=== PATIENT | male | born 1940 | race Caucasian/White ===

== ENCOUNTER → 2016-08-07 | Outpatient (CLI) | payer OTHER ==
[~2016-08-07] MED LIST: ACET-1256 PO; AMR2 PO; ASPI-428 PO; GLC850 PO; GLIM2TAB2 PO; MAGN400T6 PO; METO100T7 PO; MULT-506 PO; PRLSR20 PO; RIVA1TAB4 PO; TRAM-10 PO; TRMO180 TOP; ZCR40 PO; ZNTT/150 PO
--- NOTE | 2016-08-07 14:02 | DIAGNOSTIC IMAGING REPORT ---
SI JOINTS 3 OR MORE VIEWS CLINICAL HISTORY: M54.32 Sciatica of left [id number] pain COMPARISON STUDY: None FINDINGS: Sacroiliac joints are patent. No evidence of bony ankylosis. Postoperative changes in the low soft tissue pelvis. Degenerative changes low lumbar spine. Sacral foramina are symmetric. IMPRESSION: Mild degenerative change of the sacroiliac joints. No evidence for bony ankylosis. Electronically signed by: Taurus Castañeda M.D. 08/07/2016 2:01 PM Dictated Date/Time: 08/07/2016 2:00 PM
--- NOTE | 2016-08-07 14:04 | DIAGNOSTIC IMAGING REPORT ---
LEFT HIP UNILATERAL 2 VIEWS CLINICAL HISTORY: Left hip pain. COMPARISON: None FINDINGS: Interval note is made of surgical clips within the pelvis. Alignment of the left hip is anatomic. There is no fracture or suspicious lesion. Joint space is preserved. There is mild osteophytosis of the left hip. There is no evidence for avascular necrosis. IMPRESSION: 1. Mild arthritis of the left hip. 2. No acute fracture. Electronically signed by: Shlomo Calvillo M.D. 08/07/2016 2:02 PM Dictated Date/Time: 08/07/2016 2:01 PM
== END | disposition home or self-care (01) ==
LOC: C.RADBC 13:37
PROVIDERS: ATTEND Internal Medicine
DX: M25.552 Pain in left hip (principal); M54.32 Sciatica, left side

== ENCOUNTER → 2016-08-15 | Outpatient (CLI) | payer OTHER ==
[~2016-08-15] MED LIST changes: +GADAVIST IV PRN
--- NOTE | 2016-08-15 14:50 | DIAGNOSTIC IMAGING REPORT ---
LUMBAR SPINE MRI WITH AND WITHOUT CONTRAST HISTORY: LEFT LEG WEAKNESS AND PROSTATE CANCER TECHNIQUE: Multiplanar multisequence MRI of the lumbar spine was performed both before and after the intravenous administration of contrast. COMPARISON: None. FINDINGS: For the purpose of the report the L5-S1 disc space will be located on axial image 23 of 25. Minimal levoscoliosis. Multiple bilateral renal cysts with the largest on the left measuring 11 cm. Mild disc space. L3-L4. Moderate disc space narrowing at L4-5 and L5-S1. Mild central depression at the superior endplate of T12. This favors an old compression deformity. A few scattered T1 and T2 hyperintense lesions within the vertebral bodies with the largest at L4 which measures 2.4 cm. These suppress on the fat sat sequences and therefore likely represent hemangiomas. There are few tiny nodules along the cauda equina which are T2 hypointense, slightly T1 hyperintense and enhance. The dominant 2 mm nodule is at the L2-L3 level. This is best seen on sagittal image 11. This could represent metastatic lesions. Mild edema within the paraspinal muscles from the L3-L5 levels. L1-L2: Small broad-based posterior disc bulge without significant central canal or neural foraminal narrowing. L2-L3: Small broad-based posterior disc bulge with facet hypertrophy resulting in mild central canal narrowing. There is also a 13 x 6 mm peripheral enhancing abnormality within the left L2-L3 neural foramen which compresses the exiting left L2 nerve root at this level. This connects to the L2-L3 disc space and is consistent with a disc extrusion. L3-L4: Small broad-based posterior disc bulge with significant ligamentum and facet hypertrophy resulting in severe central canal narrowing. The central canal measures up to 6 mm in diameter. There is mild right neural foraminal narrowing. L4-L5: Small broad-based posterior disc bulge with left greater than right facet hypertrophy. This results in moderate left-sided central canal narrowing with compression of the transiting left L5 nerve roots. There is also mild left-sided neural foraminal narrowing. Prior right-sided hemilaminectomy. L5-S1: Small broad-based posterior disc bulge asymmetric to the right without significant central canal narrowing. There is displacement of the cauda equina along the periphery of the thecal sac at this level suggestive of a focal arachnoiditis . IMPRESSION: 1. There are few punctate intradural extramedullary enhancing nodules along the cauda equina. This raises the possibility of metastatic disease. Follow-up brain MRI is recommended to assess for drop metastases. 2. A large disc extrusion within the left L2-L3 neural foramen compressing the exiting left L2 nerve root. This measures 13 x 6 mm. 3. Multilevel lumbar spondylosis as described above most pronounced at the L3-L4 level where there is severe central canal narrowing. 4. Prior right L4-5 hemilaminectomy. 5. 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 Electronically signed by: Avinash Chapa M.D. 08/15/2016 2:49 PM Dictated Date/Time: 08/15/2016 2:30 PM
== END | disposition home or self-care (01) ==
LOC: C.MRIBC 13:21
PROVIDERS: ATTEND Internal Medicine
DX: C61 Malignant neoplasm of prostate (principal); R29.898 Other symptoms and signs involving the musculoskeletal system

== ENCOUNTER → 2016-08-29 | Outpatient (CLI) | payer OTHER ==
[~2016-08-29] MED LIST changes: -GADAVIST IV PRN
[2016-08-29 10:38] LABS: BLOOD UREA NITROGEN 15 mg/dl (7-18); BUN/CREATININE RATIO 13.3 (10-20); CALCIUM 9.3 mg/dl (8.5-10.1); CARBON DIOXIDE 31 mmol/L (21-32); CHLORIDE 103 mmol/L (98-107); GLUCOSE 150 mg/dl (70-99); POTASSIUM 4.4 mmol/L (3.5-5.1); SODIUM 139 mmol/L (136-145)
== END | disposition home or self-care (01) ==
LOC: C.LAB 09:31
PROVIDERS: ATTEND Physician Assistant Medical
DX: I10 Essential (primary) hypertension (principal); R93.8 Abnormal findings on diagnostic imaging of other specified body structures

== ENCOUNTER → 2016-08-30 | Outpatient (CLI) | payer OTHER ==
[~2016-08-30] MED LIST changes: +GADAVIST IV PRN
--- NOTE | 2016-08-30 14:27 | DIAGNOSTIC IMAGING REPORT ---
MRI OF THE BRAIN WITHOUT AND WITH IV CONTRAST CLINICAL HISTORY: Prostate carcinoma. ABNORMAL MRI OF THE LUMBAR SPINE WITH POSSIBLE DROP METASTASIS. COMPARISON STUDY: MRI the lumbar spine dated 08/15/2016 TECHNIQUE: MRI of the brain was performed from the vertex to the skull base utilizing various T1 and T2 weighted sequences. Following the IV administration of 9 mL of Gadavist contrast, additional enhanced images were obtained. FINDINGS: Sagittal T1, axial diffusion, proton density and T2 weighted axial, coronal FLAIR, and pre and post axial T1-weighted images were acquired. These were supplemented with post gadolinium coronal T1 weighted images. No intra or extra-axial mass lesions are visualized. Axial diffusion-weighted images reveal no evidence of acute or subacute infarction. There is no evidence of ventricular dilatation. Proton density T2-weighted and FLAIR images reveal scattered foci of increased T2 signal within the white matter, likely on a small vessel basis. There are no abnormal flow voids. There is no evidence of pathologic enhancement. IMPRESSION: No acute intracranial findings. No evidence of primary or metastatic intracranial neoplasm. Electronically signed by: Víctor Olsen M.D. 08/30/2016 2:26 PM Dictated Date/Time: 08/30/2016 2:15 PM
== END | disposition home or self-care (01) ==
LOC: C.MRI 13:12
PROVIDERS: ATTEND Physician Assistant Medical
DX: C61 Malignant neoplasm of prostate (principal); R93.8 Abnormal findings on diagnostic imaging of other specified body structures

== ENCOUNTER → 2016-11-15 | Outpatient (CLI) | payer OTHER ==
[~2016-11-15] MED LIST changes: -GADAVIST IV PRN; -PRLSR20 PO; -RIVA1TAB4 PO
[2016-11-15 14:38] LABS: ESTIMATED AVERAGE GLUCOSE 154 mg/dl; HA1C FLAG Normal (Normal)
== END | disposition home or self-care (01) ==
LOC: C.LABBC 10:15
PROVIDERS: ATTEND Internal Medicine
DX: Z00.00 Encounter for general adult medical examination without abnormal findings (principal); E11.9 Type 2 diabetes mellitus without complications

== ENCOUNTER → 2017-02-18 | Outpatient (CLI) | payer OTHER ==
[2017-02-18 14:10] LABS: BLOOD UREA NITROGEN 14 mg/dl (7-18)
== END | disposition home or self-care (01) ==
LOC: C.LABBC 10:24
PROVIDERS: ATTEND Physician Assistant
DX: R93.8 Abnormal findings on diagnostic imaging of other specified body structures (principal); Z85.46 Personal history of malignant neoplasm of prostate

== ENCOUNTER → 2017-02-21 | Outpatient (CLI) | payer OTHER ==
[~2017-02-21] MED LIST changes: +GADAVIST IV PRN
--- NOTE | 2017-02-21 10:59 | DIAGNOSTIC IMAGING REPORT ---
LUMBAR SPINE COMBINATION CLINICAL HISTORY: 76 years-old Male presenting with low back pain without numbness, intradural extra medullary enhancing nodules along the cauda equina on prior exam concerning for drop metastases. TECHNIQUE: Multisequence, multiplanar MR imaging of the lumbar spine was performed before and after the administration of intravenous contrast. IV contrast: 9 mL of Gadavist. COMPARISON: 08/15/2016. FINDINGS: Localizer images: Large renal cysts noted. Minimal levocurvature of the lumbar spine. Vertebral bodies otherwise maintain normal alignment. Well-defined T1 hyperintense, T2 hyperintense lesions in the L4 vertebral body consistent with benign hemangiomas. Remainder of bone marrow signal intensity normal. Fluid signal intensity noted within the L5-S1 intervertebral disc as on prior exam with intervertebral disc height loss, likely degenerative in etiology. Mild intervertebral disc height loss at L4-5. No endplate edema evident. Multilevel degenerative changes detailed below: L1-2: Minimal disc bulge without significant neural foraminal or spinal canal narrowing. L2-3: Minimal disc bulge with facet arthropathy and ligamentum flavum thickening resulting in minimal effacement of the thecal sac. However, focal disc extrusion measuring 13 mm along the anterior aspect of the L2-3 neural foramen exerting mass effect on the exiting left L2 nerve root. This is unchanged from prior. L3-4: Mild disc bulge with ligamentum flavum hypertrophy and facet arthropathy result in significant circumferential narrowing of the thecal sac with near complete effacement of CSF. This is unchanged since prior exam. Mild right neural foraminal narrowing also noted. L4-5: Mild disc bulge with left greater than right facet hypertrophy and ligamentum flavum thickening results in eccentric effacement of the left posterior lateral aspect of the thecal sac and left lateral recess. This results in mass effect on the transiting left L5 nerve root. Mild left neural foraminal narrowing. Postsurgical changes of prior right hemilaminectomy suggested. L5-S1: Minimal disc bulge with minimal facet arthropathy. No significant spinal canal or neural foraminal narrowing. The spinal cord ends at T12. The cauda equina is peripherally displaced in the lower thecal sac below the level of L4-5. Given the presence of postsurgical changes of right hemilaminectomy at L4-5, this could represent postsurgical arachnoiditis. Redemonstration of a focal nodular enhancement along the cauda equina at L2-3 (series 8 image 10). No additional discrete enhancing nodule is noted on the current exam although mild diffuse enhancement of the cauda equina may be present inferiorly. IMPRESSION: 1. Multilevel degenerative changes. The greatest degree of spinal canal narrowing is noted at L3-4, unchanged from prior. Varying degrees of neural foraminal narrowing. 2. Disc extrusion at L2-3 with mass effect on the exiting left L2 nerve root, unchanged. 3. Mass effect on the transiting left L5 nerve root, unchanged. 4. Mild diffuse enhancement and peripherally displaced cauda equina nerve roots below the level of L4-5 could represent postsurgical arachnoiditis status post right L4-5 hemilaminectomy aerated findings are unchanged from prior. 5. Enhancing tiny nodule at the level of L2-3 is unchanged from prior and of uncertain etiology given the absence of intracranial primary metastatic disease to suggest a drop metastasis. This could be followed on subsequent examinations. Electronically signed by: Isaac Schmidt M.D. 02/21/2017 10:57 AM Dictated Date/Time: 02/21/2017 10:40 AM
== END | disposition home or self-care (01) ==
LOC: C.MRIBC 09:19
PROVIDERS: ATTEND Physician Assistant
DX: M51.36 Other intervertebral disc degeneration, lumbar region (principal); Z85.46 Personal history of malignant neoplasm of prostate; M54.5 Low back pain; N28.1 Cyst of kidney, acquired

== ENCOUNTER → 2017-05-22 | Outpatient (CLI) | payer OTHER ==
[~2017-05-22] MED LIST changes: -GADAVIST IV PRN
[2017-05-22 11:08] LABS: ESTIMATED AVERAGE GLUCOSE 174 mg/dl; HA1C FLAG Normal (Normal)
== END | disposition home or self-care (01) ==
LOC: C.LAB 09:25
PROVIDERS: ATTEND Internal Medicine
DX: Z00.00 Encounter for general adult medical examination without abnormal findings (principal); E11.9 Type 2 diabetes mellitus without complications

== ENCOUNTER → 2017-08-29 | Outpatient (CLI) | payer OTHER ==
[~2017-08-29] MED LIST changes: -GLC850 PO; +METF850T10 PO; +RANI150T85 PO; -ZNTT/150 PO
== END | disposition home or self-care (01) ==
LOC: C.PATHSPEC 18:36
PROVIDERS: ATTEND Dermatology
DX: L57.0 Actinic keratosis (principal)

== ENCOUNTER → 2017-10-29 | Outpatient (CLI) | payer OTHER ==
[2017-10-29 10:59] LABS: ALBUMIN 3.7 gm/dl (3.4-5.0); ALKALINE PHOSPHATASE 66 U/L (45-117); ALT/SGPT 17 U/L (12-78); AST/SGOT 11 U/L (15-37); BLOOD UREA NITROGEN 15 mg/dl (7-18); CALCIUM 8.9 mg/dl (8.5-10.1); CARBON DIOXIDE 28 mmol/L (21-32); CHOLESTEROL 104 mg/dl (0-200); CREATININE 1.17 mg/dl (0.60-1.40); GLUCOSE 150 mg/dl (70-99); LDL CHOLESTEROL CALCULATED 46 mg/dl; POTASSIUM 4.4 mmol/L (3.5-5.1); SODIUM 138 mmol/L (136-145); TOTAL PROTEIN 6.8 gm/dl (6.4-8.2)
[2017-10-29 11:40] LABS: HEMOGLOBIN A1C 7.5 % (4.5-5.6)
== END | disposition home or self-care (01) ==
LOC: C.LAB 09:45
PROVIDERS: ATTEND Internal Medicine
DX: E78.5 Hyperlipidemia, unspecified (principal); I48.0 Paroxysmal atrial fibrillation; E11.42 Type 2 diabetes mellitus with diabetic polyneuropathy; I10 Essential (primary) hypertension

== ENCOUNTER 2022-07-16 10:45 | Observation (INO) ==
--- NOTE | 2022-06-19 11:44 | PAT Medication Instructions ---
Medication Instructions Date of Service June 19, 2022 Home Medications Medication Instructions Recorded triamcinolone acetonide 0.1 % 1 appln topical BID PRN Rash #15 11/26/19 topical cream grams magnesium oxide 400 mg (241.3 mg 400 mg PO QAM #90 tabs 10/10/20 magnesium) tablet cholecalciferol (vitamin D3) 50 50 mcg PO DAILY #30 caps 11/23/20 mcg (2,000 unit) capsule blood glucose control, high #1 ea 02/01/21 (KuTouch Verio High Control solution) gabapentin 400 mg capsule 400 mg PO HS #90 caps 08/07/21 famotidine 40 mg tablet (Pepcid) 40 mg PO DAILY #90 tabs 09/25/21 amlodipine 5 mg tablet (Norvasc) 5 mg PO DAILY #90 tabs 10/03/21 amiodarone 200 mg tablet 200 mg PO DAILY #90 tabs 12/06/21 hydrochlorothiazide 25 mg tablet 25 mg PO DAILY #90 tabs 01/15/22 glimepiride 2 mg tablet 6 mg PO DAILY #300 tabs 02/27/22 losartan 100 mg tablet 100 mg PO DAILY #100 tabs 02/27/22 metformin 850 mg tablet 850 mg PO BID #200 tabs 02/27/22 simvastatin 40 mg tablet 20 mg PO HS #55 tabs 02/27/22 blood sugar diagnostic (Oneuch #200 ea 03/19/22 Verio test strips) blood glucose control, normal #1 ea 03/20/22 ([employer] Verio Mid Control solution) gabapentin 100 mg capsule See Rx Instructions .Route 03/20/22 .COMPLEX #180 caps apixaban 5 mg tablet (Eliquis) 5 mg PO BID #180 tabs 04/03/22 blood-glucose meter (Accu-Chek Jo) multivitamin (Daily Multi-Vitamin tablet) 1 tab PO QAM aspirin 81 mg tablet,delayed release (Aspir-) 81 mg PO QAM triamcinolone acetonide 0.1 % topical cream 1 appln topical BID PRN magnesium oxide 400 mg (241.3 mg magnesium) tablet 400 mg PO QAM cholecalciferol (vitamin D3) 50 mcg (2,000 unit) capsule 50 mcg PO DAILY blood glucose control, high (KuTouch Verio High Control solution) gabapentin 400 mg capsule 400 mg PO HS famotidine 40 mg tablet (Pepcid) 40 mg PO DAILY amlodipine 5 mg tablet (Norvasc) 5 mg PO DAILY amiodarone 200 mg tablet 200 mg PO DAILY hydrochlorothiazide 25 mg tablet 25 mg PO DAILY glimepiride 2 mg tablet 6 mg PO DAILY losartan 100 mg tablet 100 mg PO DAILY metformin 850 mg tablet 850 mg PO BID simvastatin 40 mg tablet 20 mg PO HS blood sugar diagnostic (OneTouch Verio test strips) blood glucose control, normal (OneTouch Verio Mid Control solution) gabapentin 100 mg capsule See Rx Instructions .Route .COMPLEX apixaban 5 mg tablet (Eliquis) 5 mg PO BID Continue as directed famotidine 40 mg tablet (Pepcid) 40 mg PO DAILY amlodipine 5 mg tablet (Norvasc) 5 mg PO DAILY amiodarone 200 mg tablet 200 mg PO DAILY gabapentin 100 mg capsule See Rx Instructions .Route .COMPLEX ASK your prescriber and surgeon apixaban 5 mg tablet (Eliquis) 5 mg PO BID STOP taking 24 hours before surgery triamcinolone acetonide 0.1 % topical cream 1 appln topical BID PRN DO NOT take the morning of surgery multivitamin (Daily Multi-Vitamin tablet) 1 tab PO QAM magnesium oxide 400 mg (241.3 mg magnesium) tablet 400 mg PO QAM cholecalciferol (vitamin D3) 50 mcg (2,000 unit) capsule 50 mcg PO DAILY hydrochlorothiazide 25 mg tablet 25 mg PO DAILY glimepiride 2 mg tablet 6 mg PO DAILY losartan 100 mg tablet 100 mg PO DAILY metformin 850 mg tablet 850 mg PO BID Take morning of surgery With a small sip of water, OTHERWISE NOTHING TO EAT OR DRINK AFTER MIDNIGHT: aspirin 81 mg tablet,delayed release (Aspir-) 81 mg PO QAM (unless surgeon directed otherwise) Take evening before surgery gabapentin 400 mg capsule 400 mg PO HS metformin 850 mg tablet 850 mg PO BID simvastatin 40 mg tablet 20 mg PO HS Other Notes If you have any questions please call us at [phone] or [phone] or [phone] or [phone]
--- NOTE | 2022-06-26 11:28 | Anesthesiology Consultation ---
Date of Service June 26, 2022 Assessment & Plan (1) Encounter for pre-operative examination: Chart Review Chart Review: Acceptable Risk for Surgery and Patient seen in Pre Admission Testing - Pt is NOT an acceptable candidate for Outpatient Joint due to age - Check BSG AM DOS Per PAT appt on 06/26/22, patient denies any recent travel or large group activities. Pt is vaccinated for Covid. Will leave to surgeon's discretion if p reop Covid testing needed. Educated on importance of using Covid precautions one week prior to surgery Pt last seen by cardio 01/18/22= atrial fibrillationoccasional episodes of asymptomatic atrial fibrillation-acceptable and should remain on amiodarone and anticoagulation. Remains on Eliquis twice a day. Tolerating amiodarone well. Sinus bradycardia however the heart rate is acceptable and he has no symptoms. HypertensionBP good today. Kidney diseasecreatinine does fluctuate. Follow- up in 6 months. History Surgery Operation Date: 07/16/22 12:20 Proposed Procedures p Right Reverse Total Shoulder Arthroplasty - Joshua Agustin DO Height/Weight Height: 6 ft Weight: 88.2 kg Allergies Allergy/AdvReac Type Severity Reaction Status Date / Time No Known Allergies Allergy Unknown Verified 06/18/22 09:31 Medications Home Medications Medication Instructions Recorded Confirmed Last Taken blood-glucose meter (Accu-Chek #1 ea 12/22/18 05/23/22 Unknown Jo) multivitamin (Daily Multi-Vitamin 1 tab PO QAM 12/22/18 06/18/22 Unknown tablet) aspirin 81 mg tablet,delayed 81 mg PO QAM 02/02/19 06/18/22 Unknown release (Aspir-) triamcinolone acetonide 0.1 % 1 appln topical BID PRN Rash #15 11/26/19 06/18/22 Unknown topical cream grams magnesium oxide 400 mg (241.3 mg 400 mg PO QAM #90 tabs 10/10/20 06/18/22 Unknown magnesium) tablet cholecalciferol (vitamin D3) 50 50 mcg PO DAILY #30 caps 11/23/20 06/18/22 Unknown mcg (2,000 unit) capsule blood glucose control, high #1 ea 02/01/21 05/23/22 Unknown (OneTouch Verio High Control solution) gabapentin 400 mg capsule 400 mg PO HS #90 caps 08/07/21 06/18/22 Unknown famotidine 40 mg tablet (Pepcid) 40 mg PO DAILY #90 tabs 09/25/21 06/18/22 Unknown amlodipine 5 mg tablet (Norvasc) 5 mg PO DAILY #90 tabs 10/03/21 06/18/22 Unknown amiodarone 200 mg tablet 200 mg PO DAILY #90 tabs 12/06/21 06/18/22 Unknown hydrochlorothiazide 25 mg tablet 25 mg PO DAILY #90 tabs 01/15/22 06/18/22 Unknown glimepiride 2 mg tablet 6 mg PO DAILY #300 tabs 02/27/22 06/18/22 Unknown losartan 100 mg tablet 100 mg PO DAILY #100 tabs 02/27/22 06/18/22 Unknown metformin 850 mg tablet 850 mg PO BID #200 tabs 02/27/22 06/18/22 Unknown simvastatin 40 mg tablet 20 mg PO HS #55 tabs 02/27/22 06/18/22 Unknown blood sugar diagnostic (OneTouch #200 ea 03/19/22 05/23/22 Unknown Verio test strips) blood glucose control, normal #1 ea 03/20/22 05/23/22 Unknown (OneTouch Verio Mid Control solution) gabapentin 100 mg capsule See Rx Instructions .Route 03/20/22 06/18/22 Unknown .COMPLEX #180 caps apixaban 5 mg tablet (Eliquis) 5 mg PO BID #180 tabs 04/03/22 06/18/22 Unknown Past Medical History Medical History Atrial fibrillation with rapid ventricular response HX-controlled w/ medication - follows Dr Torres last visit 01/18/2022 On Eliquis Chronic kidney disease Diabetes mellitus, type 2 Fair glucose control per patient GERD (gastroesophageal reflux disease) Well controlled and stable Hiatal hernia Hx of Lyme disease 2013 Hyperlipidemia Hypertension Kidney 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 Prostate cancer 2004- s/p prostatectomy No chemo or XRT Exercise / Class Metabolic Activity II 4-5 Yardwork/Stairs/Walk up hill (one flight of stairs - no chest pain or SOB ) Past Family History Family History Brother Diabetes Heart disease Mother Bone cancer Hypertension Father Heart disease Hypertension Myocardial infarction Prostate cancer Sister Heart disease Pulmonary embolism Dementia Denies family history of Ovarian cancer Breast cancer Lung cancer Colorectal cancer Stroke Past Surgical History Surgical History H/O inguinal hernia repair History of cardioversion History of colonoscopy History of discectomy LUMBAR History of esophagogastroduodenoscopy (EGD) History of laminectomy CERVICAL History of prostatectomy History of surgical removal of pilonidal cyst History of tooth extraction Past Anesthesia History No Hx of Anesthesia Complications and No Family Hx of Anesthesia Complications History of PONV No Hx of PONV and No Hx of Motion Sickness Social History Smoking Status: Never smoker tobacco type: smokeless tobacco Do You Dip or Chew Tobacco: Yes (1 can/week- advised ) Hx Alcohol Use: No Hx Substance Use: No substance use type: does not use Review of Systems Very mild snoring - no hx of sleep study Patient denies chest pain, shortness of breath, dyspnea on exertion, cough, wheezing, palpitations. No hx of seizures, stroke, [place]. No hx of blood clots or blood transfusions Physical Exam Vital Signs VITALS BP 164/74 (usually well controlled per patient) P 53 TEMP 97.7 SP02 98% RESP 16 Constitutional no acute distress ENMT Mouth: no TMJ clicking Thyromental Distance: > or= 3.5 Finger Breadths (3.5) Mallampati Class: III Full upper denture Missing all bottom teeth except bottom four front teeth Neck neck extension not limited Respiratory normal respiratory effort; no respiratory distress Auscultation: lungs clear to auscultation bilaterally; no wheezes Cardiovascular Rate/Rhythm: regular rate and regular rhythm Heart Sounds: no murmur Vessels: no carotid bruit Musculoskeletal Spine: no pain with cervical ROM Extremities: extremities normal to inspection Psychiatric Orientation: alert Lab Results Anesthesia Preop Results Results Anesthesia Widget: WBC 7.64 K/ul (4.8-10.8) 06/26/22 Hgb 12.3 g/dl (14.0-18.0) L 06/26/22 Hct 36.1 % (40.1-51.0) L 06/26/22 Plt 229 K/uL (130-400) 06/26/22 Na 140 mmol/L (136-145) 06/26/22 K 4.1 mmol/L (3.5-5.1) 06/26/22 Cl 106 mmol/L (98-107) 06/26/22 CO2 28 mmol/L (21-32) 06/26/22 BUN 22 mg/dl (6-23) 06/26/22 Creat 1.38 mg/dl (0.6-1.4) 06/26/22 Glucose Level 149 mg/dl (70-99(Fasting)) H 06/26/22 PT 11.3 Seconds (9.0-12.0) 06/26/22 PTT 27.4 Seconds (21.0-31.0) 06/26/22 INR 1.1 (0.9-1.1) 06/26/22 HA1c 7.0 % (4.5-5.6) H 06/26/22 Blood Type O Positive 06/26/22 Antibody Screen NEGATIVE 06/26/22 Testing Electrocardiogram Date: 01/18/22 Findings: + SB @ (54bpm ) Low voltage QRS Chest X-Ray Date: 06/26/22 Findings: + NAD Echocardiogram Date: 01/28/19 EF: 65-70% LV Function: normal RWMA: + none Other Findings: + LVH (mild/concentric ) LA severely dilated RA mildly dilated. Mild MR Rhythm atrial fibrillation COVID-19 Risk Screen Screening Information COVID-19 Screen Date: 06/26/22 Exposure 21 Days Family/Household +COVID Last 21 Days: No Exposure 10 Days Any COVID Exposure Last 10 Days: No Symptoms Last 10 Days Experienced COVID Sx Last 10 Days: No + COVID 0-90 Days COVID + in Last 0-90 Days: No Risk Plan COVID Risk Plan: No Risk Identified Patient Education COVID Preop Screening Education Complete: Yes
[~2022-07-16 10:45] MED LIST changes: -ACET-1256 PO; +ACETAMINOPHEN 500 MG TAB PO SCH; -AMR2 PO; -ASPI-428 PO; +BUPIVACAINE 0.5 % 5 MG/1 ML PF 10ML VIAL ONE; +FAMOTIDINE 20 MG TAB PO SCH; +GABAPENTIN 300 MG CAP PO SCH; -GLIM2TAB2 PO; +LR 15ML/HR IV SCH; +LR 60ML/HR IV SCH; -MAGN400T6 PO; -METF850T10 PO; -METO100T7 PO; -MULT-506 PO; +ORTHO JOINT MIX INFIL SCH; -RANI150T85 PO; -TRAM-10 PO; +TRANEXAMIC ACID 1,000 MG **IV Intra-op IV SCH; +TRANEXAMIC ACID 1,000 MG **IV Pre-op IV SCH; -TRMO180 TOP; -ZCR40 PO; +ceFAZolin 2000MG 2,000 MG/15 ML SYR IV SCH; +dexAMETHasone 4 MG TAB PO SCH
--- NOTE | 2022-07-16 11:20 | History & Physical Bridge Note ---
Date of Service July 16, 2022 History & Physical Bridge Note I have examined the patient, reviewed the History & Physical and in the interval since the performance of the History & Physical I have noted the following changes of clinical significance: no changes noted
[2022-07-16] MEDS ORDERED: fentaNYL citrate 100 MCG/2 ML VIAL IV PRN (12:45)
[2022-07-16] MEDS ORDERED: ATROPINE SULFATE 0.1 MG/ML 10ML SYR IV PRN (12:45)
[2022-07-16] MEDS ORDERED: ONDANSETRON INJ 2 MG/ML 2 ML VIAL IV PRN ×2 (12:45→17:12)
[2022-07-16] MEDS ORDERED: ePHEDrine sulfate 50 MG/ML AMP IV PRN (12:45)
[2022-07-16] MEDS ORDERED: ONDANSETRON INJ 2 MG/ML 2 ML VIAL ONE (12:46)
[2022-07-16] MEDS ORDERED: LIDOCAINE 2% MPF LOCAL 5 ML VIAL INFIL ONE (12:46)
[2022-07-16] MEDS ORDERED: PROPOFOL IV EMULSION 10 MG/ML 20 ML VIAL IV ONE (12:46)
[2022-07-16] MEDS ORDERED: DEXAMETHASONE SOD INJ 4 MG/ML VIAL ONE (12:46)
[2022-07-16] MEDS ORDERED: MIDAZOLAM HCL 1 MG/ML 2ML VIAL ONE (12:47)
[2022-07-16] MEDS ORDERED: fentaNYL citrate 100 MCG/2 ML VIAL ONE (12:47)
[2022-07-16] MEDS ORDERED: ORTHO JOINT ANESTHETIC ONE (13:22)
[2022-07-16] MEDS ORDERED: ePHEDrine sulfate 50 MG/ML AMP ONE (14:37)
--- NOTE | 2022-07-16 15:05 | Operative Report ---
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 A tenodesis was opted. This was a separate and distinct portion of the procedure. For these reasons, a CPT code modifier 59 will be added to this case. Implants used: I used a [employer] Comprehensive reverse total shoulder arthroplasty system with a size 17 press fit micro humeral stem, a standard humeral tray and a standard humeral bearing, a 25 mm small augment baseplate with a 6.5 mm central screw and superior and inferior locking screws, and a size 40 mm eccentric glenosphere. Puneet arrived at [facility] for the above procedure. He was seen in the preoperative holding area and the operative extremity was identified and signed. He was given a preoperative antibiotic, TXA, and an interscalene nerve block. He was taken back to the operating room, laid on table in supine position, and put under general anesthesia. He was then put into the beachchair position. The shoulder was then prepped and draped in sterile fashion. A timeout was done and the patient and the operative extremity was properly identified. A deltopectoral approach was used. Dissection was taken down through the fascia and the deltoid was retracted laterally and the conjoined tendon was retracted medially. The anterior shoulder was exposed. The biceps groove was opened up and the biceps tendon was examined extensively. The biceps tendon demonstrated enlargement and inflammatory changes consistent with longstanding inflammation in the context of osteoarthritis and cuff arthropathy. The long head of the biceps tendon was then tenodesed to the upper border of the pectoralis major. This was a separate and distinct portion of the procedure. The subscapularis was then directly released off the lesser tuberosity with a peel technique. The inferior capsule was released and the humeral head was dislocated. A canal finding reamer was sent down the center of the humeral canal. Sequential reaming up to a size 17 reamer was done. Off that reamer, a proximal humeral resection guide was placed. The proximal humerus was resected at 135 of inclination and 25 of retroversion. Osteophytes were then removed and the glenoid was exposed. Time was spent doing a complete capsular and labral release. The glenoid guide was then placed in the inferior aspect of the glenoid. A 3.2 mm Steinmann pin was then placed into the glenoid vault at 10 of inclination. The glenoid baseplate was then reamed. The final size 25 mm small augment baseplate was then impacted in the place. A 6.5 mm central screw was then placed followed by superior and inferior locking screws. A 40 mm eccentric glenosphere was then impacted into place. Surrounding soft tissues were then injected with 100 cc an orthopedic pain control cocktail. The proximal humerus was then exposed. Sequential broaching of the humerus up to a size 17 broach was done. Off that broach a standard humeral tray was trialed. The shoulder was then reduced, brought through a full range of motion, and felt to be stable. The shoulder was then dislocated and the broach was removed. The final size 17 micro press-fit humeral stem was then impacted into place. A standard humeral bearing was then snapped onto a standard humeral tray. The humeral tray was then impacted onto the humeral stem. The shoulder was once again reduced, brought through a full range of motion, and felt to be stable. The subscapularis was then tenodesed back to the lesser tuberosity with transosseous FiberWire sutures and side to side sutures with the arm in 45 of external rotation. A dilute betadyne lavage was then done for 3 minutes. The joint was then irrigated with normal saline solution. Hemostasis was obtained. The interval was closed with 2-0 Vicryl suture. The skin was then closed with 2-0 Vicryl and elsie. A Silverlon dressing was placed and the arm was rested in a regular arm sling. He was then extubated and transferred to a hospital bed. He taken to the postanesthesia care unit in stable condition. He tolerated the procedure well. Joshua Garner PA-C, was present for the entire procedure. He was critical for patient positioning, prepping, draping, retraction exposure, wound closure and application of sterile dressing. I attest to the content of the Intraoperative Record and any orders documented therein. Any exceptions are noted below.
--- NOTE | 2022-07-16 16:09 | XRay Report ---
XR shoulder RT min 2V routine CLINICAL HISTORY: Post shoulder surgery COMPARISON STUDY: Right shoulder 10/30/2018. FINDINGS: Status post reverse right total shoulder arthroplasty. The hardware appears intact. No frac ture or dislocation. Skin elsie are in place. Soft tissue gas within the right shoulder is likely d ue to the recent postoperative change. The punctate metallic density overlying the mid upper arm. IMPRESSION: 1. Status post reverse right total shoulder arthroplasty. The hardware appears intact. 2. No fractures. 3. Punctate metallic density within the soft tissues of the mid right upper arm. ACT 112: Negative or not required by law. Electronically signed by: Avinash Chapa M.D. 07/16/2022 4:07 PM
--- NOTE | 2022-07-16 16:22 | Anesthesiology Progress Note ---
Date of Service July 16, 2022 Anesthesia Post Procedure Vital Signs Vital Signs: Temp Pulse Pulse Resp BP BP Pulse Ox 07/16/22 16:10 36.6 C 55 L 16 144/74 H 98 07/16/22 16:00 56 L 14 149/73 H 97 07/16/22 15:50 55 L 12 155/81 H 99 07/16/22 15:40 56 L 14 154/74 H 100 07/16/22 15:30 63 14 153/96 H 100 07/16/22 15:23 36.0 C L 57 L 12 171/80 H 98 07/16/22 11:21 36.6 C 65 20 178/81 H 99 O2 Del Method O2 Flow Rate 07/16/22 16:10 Room Air 07/16/22 16:00 Room Air 07/16/22 15:50 Oxymask 4 07/16/22 15:40 Oxymask 4 07/16/22 15:30 Oxymask 9 07/16/22 15:23 Oxymask 9 07/16/22 11:21 Room Air Transfer of Care Handoff Completed per policy Notes Mental Status: alert / awake / arousable and participated in evaluation Patient Amnestic to Procedure: Yes Nausea / Vomiting: adequately controlled Pain: adequately controlled Airway Patency, RR, SpO2: stable & adequate BP & HR: stable & adequate Hydration State: stable & adequate Anesthetic Complications: no major complications apparent
[2022-07-16] MEDS ORDERED: oxyCODONE HCL IR 5 MG TAB (IMMEDIATE RELEASE) PO PRN (17:12)
[2022-07-16] MEDS ORDERED: SODIUM CHLORIDE 0.9% 1000ML 1,000 ML IV SCH (17:12)
[2022-07-16] MEDS ORDERED: METOCLOPRAMIDE HCL INJ 5 MG/ML 2 ML VIAL IV PRN (17:12)
[2022-07-16] MEDS ORDERED: HYDROmorphone INJ 0.5 MG/0.5 ML SYR IV PRN (17:12)
[2022-07-16] MEDS ORDERED: PHARMACY GLYCEMIC MGMT CONSULT PRN (17:12)
[2022-07-16] MEDS ORDERED: MAGNESIUM HYDROXIDE SUSP 30 ML UDC PO PRN (17:12)
[2022-07-16] MEDS ORDERED: NALOXONE HCL 0.4 MG/1 ML VIAL/CARP IV PRN (17:12)
[2022-07-16] MEDS ORDERED: bisacodyL 10 MG SUPP PR PRN (17:12)
[2022-07-16] MEDS ORDERED: TRIAMCINOLONE ACET 0.1% CR 15 GM TUBE TOP PRN (17:12)
[2022-07-16] MEDS ORDERED: GABAPENTIN 100 MG CAP SCH (17:12)
[2022-07-16] MEDS: KETOROLAC TROMETHAMINE 15 MG/ML VIAL IV SCH (17:43)
[2022-07-16] MEDS ORDERED: GLUCOSE 40% GEL 15 GM TUBE PO PRN (18:15)
[2022-07-16] MEDS ORDERED: CARBOHYDRATES FOR HYPOGLYCEMIA PO PRN (18:15)
[2022-07-16] MEDS ORDERED: DEXTROSE 50% 50 ML SYRINGE IV PRN (18:15)
[2022-07-16] MEDS ORDERED: GLUCAGON FOR INJ 1 MG VIAL IM PRN (18:15)
[2022-07-16] MEDS ORDERED: GLUCOSE 10 TAB/TUBE PO PRN (18:15)
[2022-07-16] MEDS ORDERED: LANTUS PER UNIT CHARGE SQ ONE (18:30)
[2022-07-16] MEDS: INSULIN ASPART PER UNIT SC SCH ×2 (18:38→20:32)
[2022-07-16] MEDS: ACETAMINOPHEN 500 MG TAB PO SCH (20:31)
[2022-07-16] MEDS: DOCUSATE SODIUM 100 MG CAP PO SCH (20:31)
[2022-07-16] MEDS: APIXABAN 5 MG TABLET PO SCH (20:32)
[2022-07-16 20:37] LABS: Creatinine Clr Calc Pharmacy 43.9 ml/min; Est GFR (African American) 53.5 ml/min; Est GFR (Non-African American) 46.1 ml/min
[2022-07-16] MEDS: ceFAZolin 2000MG 2,000 MG/15 ML SYR IV SCH (20:38)
[2022-07-16] MEDS ORDERED: SIMVASTATIN 20 MG TAB PO SCH (21:00)
[2022-07-16] MEDS ORDERED: SENNA 8.6 MG TAB PO SCH (21:00)
[2022-07-16] MEDS ORDERED: INSULIN GLARGINE 100 UNIT/ML VIAL SC SCH (21:00)
[2022-07-16] MEDS ORDERED: GABAPENTIN 400 MG CAP PO SCH (21:00)
[2022-07-17] MEDS: INSULIN ASPART PER UNIT SC SCH ×3 (00:28→08:46)
[2022-07-17] MEDS: KETOROLAC TROMETHAMINE 15 MG/ML VIAL IV SCH ×3 (00:30→10:06)
[2022-07-17] MEDS: ACETAMINOPHEN 500 MG TAB PO SCH (06:18)
[2022-07-17] MEDS: ceFAZolin 2000MG 2,000 MG/15 ML SYR IV SCH (06:21)
[2022-07-17] MEDS ORDERED: LANTUS PER UNIT CHARGE SQ ONE (08:00)
[2022-07-17] MEDS: APIXABAN 5 MG TABLET PO SCH (08:29)
[2022-07-17] MEDS: DOCUSATE SODIUM 100 MG CAP PO SCH (08:30)
[2022-07-17] MEDS ORDERED: FAMOTIDINE 40 MG TABLET PO SCH (09:00)
[2022-07-17] MEDS ORDERED: AMIODARONE 200 MG TAB PO SCH (09:00)
[2022-07-17] MEDS ORDERED: MULTIVITAMIN TAB PO SCH (09:00)
[2022-07-17] MEDS ORDERED: hydroCHLOROthiazide 25 MG TAB PO SCH (09:00)
[2022-07-17] MEDS ORDERED: amLODIPine BESYLATE 5 MG TAB PO SCH (09:00)
[2022-07-17] MEDS ORDERED: ASPIRIN 81 MG ECTAB PO SCH (09:00)
[2022-07-17] MEDS ORDERED: LOSARTAN POTASSIUM 50 MG TAB PO SCH (09:00)
[2022-07-17] MEDS ORDERED: GABAPENTIN 100 MG CAP PO SCH (09:00)
[2022-07-17] MEDS ORDERED: MAGNESIUM OXIDE 400 MG TAB PO SCH (09:00)
--- NOTE | 2022-07-17 09:53 | Pharmacy Report ---
Pharmacy Glycemic Short Note 2 - Date of Service July 17, 2022 - Glycemic Short BSG Results (Last 24 hours): 07/16/22 07/16/22 07/16/22 11:17 15:26 20:16 POC Glucose 171 H 200 H 312 H* 07/16/22 07/17/22 07/17/22 20:18 00:12 03:49 POC Glucose 302 H* 225 H 218 H 07/17/22 08:03 POC Glucose 189 H OUTPATIENT ANTIDIABETIC REGIMEN: * Glimepiride 6mg PO daily * Metformin 850mg PO BID * HbA1c: 7% (06/26/22) ASSESSMENT: * Mr Parham is an 82yo diabetic M, POD #1 s/p R total shoulder with Dr. Agustin yesterday. * Pt received 8mg PO dexamethasone pre-op yesterday, and possibly additional IV DXM (documentation is incomplete). DXM is expected to cause significant steroid-induced hyperglycemia. * Oral agents held post-op and pt was initiated on SQ basal/bolus insulin regimen. Initially, pt refused insulin doses last evening. At bedtime, BSG became significantly elevated (BSG >300 mg/dL). Pt then started to accept insulin administration. BSGs have since improved. * Basal insulin provided this morning to help control BSGs as DXM wears off. Expect BSGs to continue to improve today. Novolog parameters were loosened this morning in an attempt to avoid hypoglycemia as steroid effects wear off and insulin requirements lessen. * Will continue to follow and adjust regimen as indicated. PLAN FOR INPATIENT GLYCEMIC CONTROL: * Hold outpatient oral diabetes medications * Basal insulin * Lantus 10 units SQ x1 dose this morning * Bolus insulin * NovoLog per scale ACHS or Q6hrs while NPO * Goal Range: Low 110 mg/dL - High 140 mg/dL * Correction Factor: 25 mg/dL/unit * Nutritional / Prandial insulin per carb ratio of 1 unit per 9 grams CHO consumed
--- NOTE | 2022-07-17 12:00 | Orthopedic Progress Note ---
Date of Service July 17, 2022 Assessment & Plan (1) Status post reverse total replacement of right shoulder: Overall is doing very well. Is not having much pain in the right shoulder. He will be seen by physical therapy today for ambulation and range of motion exercises. He can be discharged home later today. He will follow-up with orthopedics in 2 weeks. Subjective Puneet was seen and examined at bedside this morning. Overall is doing very well. He is not having much pain in the right shoulder. He has no complaints.. Review of Systems All systems reviewed & are unremarkable except as noted in HPI & below. Physical Exam On physical examination the right shoulder, the dressing is clean and dry. The nerve block is still in effect. He is wearing his sling as instructed.. Results & Data Results & Data Laboratory Results . Diagnostic Findings Postoperative x-rays of the right shoulder show the prosthesis to be in anatomic alignment without any evidence of fracture, dislocation, or loosening.. PG Care Time/CCT Total # of Minutes Spent Total Time Spent with Patient: Total time spent is greater than 50% in coordination of care (as documented) at patient's floor/unit and/or counseling patient: Coding Level of Care Code 30880 Post Operative Follow-Up Diagnoses Status post reverse total replacement of right shoulder Z96.611
--- NOTE | 2022-07-17 12:01 | Discharge Summary ---
Date of Service July 17, 2022 Principal Diagnosis Same as "Discharge Diagnosis" noted below under Discharge Instructions. Discharge Exam On physical examination the right shoulder, the dressing is clean and dry. The nerve block is still in effect. He is wearing his sling as instructed.. Discharge Data Procedures Performed Operation Date: 07/16/22 13:00 Actual Procedures p Right Total Shoulder Arthroplasty Reverse(Right) - Joshua Agustin DO Ordered Studies 07/16/22 05:00 US - OR guided needle placemen Routine Hospital Course (1) Status post reverse total replacement of right shoulder: On July 16, 2022 Puneet arrived at [facility] and underwent a right reverse shoulder replacement without complication. He had a general anesthetic and a right interscalene nerve block. Postoperatively he was placed in a sling and transferred to the general orthopedic floors. His hospital course was uneventful. On postop day #1, his vital signs were stable and his pain was well controlled. He was able to participate well with physical therapy doing ambulation and range of motion exercises. He was then discharged home. He will follow-up with orthopedics in 2 weeks. PG Care Time/CCT Total # of Minutes Spent Total Time Spent with Patient: Total time spent is greater than 50% in coordination of care (as documented) at patient's floor/unit and/or counseling patient: Discharge Plan Discharge Items Patient Disposition: Home - Home Health Services Reason For Visit: Degenerative Joint Disease Right Shoulder Discharge Diagnosis: Right reverse shoulder replacement Activity: As commented below Non-emergency contact: Surgeon Call non-emergency contact if: your wound has increased redness and your wound has increased drainage Follow-up/Referrals: Isaac Fernández MD [Primary Care Provider] - Diet: Regular Addtl Attending Provider Instructions: Activity and Therapy Recommendations: * If you are using [facility] then therapy will be provided at your home until they feel you have accomplished all of your goals. * If you are using [facility] then Physical Therapy will be provided until they feel you are ready to start Outpatient Physical Therapy. * If you are not using home therapy then Outpatient Physical Therapy should start about 3-5 days from your day of surgery. Therapy will last about 8-12 weeks * Wear your sling for 3 weeks, unless otherwise instructed. You may remove your sling to shower and to dress, but otherwise, you should be in your sling at all times, including while sleeping * The shoulder replacement is very stable and you can use your hand while in the sling * You were shown a series of exercises in the hospital. Do these exercises daily including the exercises you were shown in physical therapy. Medications: * Narcotic You will likely be sent home from the hospital with a prescription for the narcotic pain medication that worked best throughout your stay. * Other medications may be prescribed for specific circumstances. If you have any questions, please call the office at . * Resume previous home medications unless otherwise instructed Dressing Care: Leave the Silverlon dressing in place for 7 days. After 7 days you may remove the dressing. If the incision is not draining then you may leave the elsie open to air. If there is a little bit of drainage or if the elsie are getting stuck on your clothing then cover the incision with a dry dressing. The elsie will be removed at your 2 week follow-up appointment. Showering: You may shower with the Silverlon dressing in place. Do not let the shower spray hit the dressing directly. Pat the Silverlon dressing dry. If the dressing becomes wet underneath, then simply remove the dressing. Keep the incision dry until you are 7 days out from the day of surgery. After 7 days you may remove the Silverlon dressing and shower with the elsie exposed. Let soapy water run over the elsie and pat them dry. Do not scrub or soak the incision. Things To Watch For: * Drainage from the incision site that occurs more than one week after your surgery. * Increased redness at the incision site. * Fever above 102 degrees Fahrenheit. * Unusual chest pain or shortness of breath. * Call [facility] at with any of the above problems Follow-Up Visit: Follow-up with Dr. Agustin's PA (Joshua Garner) 2-3 weeks after your day of surgery. He will remove your elsie and answer any questions. If you have any additional questions or concerns, Dr Agustin is usually in the office at the same time and will be available An appointment was probably scheduled when you signed-up for surgery in the office. If you have any questions call More detailed instructions as well as Frequently Asked Questions were provided in a folder by our office when you signed-up for surgery. Please review these instructions when you get home. If you have any further questions or concerns, please feel free to call the office at [phone] Pending Studies at Discharge: No Stand-Alone Forms: [facility] Medications and DC Order Prescriptions: New oxycodone-acetaminophen 5-325 mg tablet 1 tab PO Q6H PRN (Reason: pain) Qty: 30 0RF Continued triamcinolone acetonide 0.1 % cream 1 appln topical BID PRN (Reason: Rash) Qty: 15 1RF magnesium oxide 400 mg (241.3 mg magnesium) tablet 400 mg PO QAM Qty: 90 3RF cholecalciferol (vitamin D3) 50 mcg (2,000 unit) capsule 50 mcg PO DAILY Qty: 30 0RF (DME) OneTouch Verio High Control Solution See Rx Instructions .Route Qty: 1 1RF Rx Instructions: LEVEL THREE gabapentin 400 mg capsule 400 mg PO HS Qty: 90 3RF famotidine [Pepcid] 40 mg tablet 40 mg PO DAILY Qty: 90 3RF Label Comments: TAKES HS amlodipine [Norvasc] 5 mg tablet 5 mg PO DAILY Qty: 90 3RF amiodarone 200 mg tablet 200 mg PO DAILY Qty: 90 3RF Label Comments: TAKES QAM hydrochlorothiazide 25 mg tablet 25 mg PO DAILY Qty: 90 3RF metformin 850 mg tablet 850 mg PO BID Qty: 200 3RF glimepiride 2 mg tablet 6 mg PO DAILY Qty: 300 3RF losartan 100 mg tablet 100 mg PO DAILY Qty: 100 3RF simvastatin 40 mg tablet 20 mg PO HS Qty: 55 3RF Rx Instructions: 1/2 TABLET BY MOUTH DAILY (DME) OneTouch Verio test strips Strip See Rx Instructions .Route Qty: 200 3RF Rx Instructions: Patient tests twice daily and as needed (DME) blood glucose control, normal [OneTouch Verio Mid Control] Solution See Rx Instructions .Route Qty: 1 0RF Rx Instructions: LEVEL 3 gabapentin 100 mg capsule See Rx Instructions .ROUTE .COMPLEX Qty: 180 1RF Dose Instruction: TAKE 2 CAPSULES EVERY MORNING Rx Instructions: TAKE 2 CAPSULES EVERY MORNING Eliquis 5 mg tablet 5 mg PO BID Qty: 180 3RF (DME) blood-glucose meter [Accu-Chek Jo] misc See Dose Instructions .ROUTE .MEDSUPPLY Qty: 1 Rx Instructions: TEST ONCE DAILY. multivitamin [Daily Multi-Vitamin] tablet 1 tab PO QAM aspirin [Aspir-81] 81 mg Tablet,Delayed Release (Dr/Ec) 81 mg PO QAM Rx Instructions: PER DR BROWNE PER PT TO CONTINUE Discharge Orders: Discharge Order (Routine); Ordered 07/17/22 Ordered By: Joshua Miller/Other Patient Handouts: Shoulder Arthroscopy Admission Data Admit Date/Time: 07/16/22 15:21 Attending Provider: Joshua Agustin Admit Provider: Joshua Agustin Primary Care Provider: Isaac Fernández Other Interventions: Discharge Summary Assessment (RN) Last Done: 07/17/22 09:42
== END 2022-07-17 11:07 | disposition home health service (06) ==
LOC: ASU 10:45 → 3W 15:21 → INTOOBSV 15:21